=== PATIENT | male | born 1940 | race Caucasian/White ===

== ENCOUNTER 2016-04-20 05:21 | Day surgery (SDC) | payer MEDICARE, BC ==
[2016-04-19 09:25] LABS: BASOPHILS 0.2 % (0.0-2.0); EOSINOPHILS 7.5 % (0-7); IMMATURE GRANULOCYTES 0.2 % (0-5); LYMPHOCYTES 21.9 % (15-50); MCH 31.2 pg (26.0-34.0); MCHC 32.3 g/dL (31.0-37.0); MCV 96.6 fL (80.0-100.0); MEAN PLATELET VOLUME 10.8 fL (7.4-10.4); MONOCYTES 6.8 % (2-11); NEUTROPHILS 63.4 % (40-80); PLATELET COUNT 139 10x3/uL (130-400); RBC 3.21 10x6/uL (4.20-6.10); RDW 14.1 % (11.5-14.5); WBC 8.1 10x3/uL (4.8-10.8)
[2016-04-19 09:43] LABS: ANION GAP 14.5 mmol/L (8-16); CALCIUM 10.6 mg/dL (8.5-10.1); CARBON DIOXIDE 26.8 mmol/L (21.0-32.0); CREATININE - SERUM 4.2 mg/dL (0.6-1.3); POTASSIUM - SERUM 4.3 mmol/L (3.5-5.1)
[2016-04-19 09:49] LABS: APTT 31.1 SECONDS (22.8-39.4); INR 1.05 (0.85-1.17); PROTIME 13.5 SECONDS (11.6-15.0)
[~2016-04-20] VITALS: Ht 175.3 cm; Wt 72.6 kg
[~2016-04-20 05:21] MED LIST: ALTACE5 MG PO; ASPIRIN EC325 M1 PO; CATAPRES0.1 MG PO; FISH OIL 1,2001 CAP PO; FLOMAX0.4 MG PO; IRON PO; METOPROLOL TART50 MG PO; NORVASC5 MG PO; PRESERVISION AR1 CAP PO; ROCALTROL0.25 MCG PO; ZOCOR20 MG PO; ZYLOPRIM100 MG PO
[2016-04-20] MEDS ORDERED: PROTONIX40 MG PO (06:31)
[2016-04-20 06:34] VITALS: Ht 175.3 cm; Wt 72.6 kg
--- NOTE | 2016-04-20 11:30 | NUR ---
1110 DR. LINDA HATCH
--- NOTE | 2016-04-30 13:07 | OP ---
PATIENT NAME: VENKATESH JEROME MEDICAL RECORD: [id number] :39 [facility] ADMISSION DATE: SURGEON: SHANA MCKEON MD DATE OF OPERATION: 04/20/2016 REFERRED BY: Dr. Gatrh Scales PREOPERATIVE DIAGNOSIS: Chronic kidney disease V. POSTOPERATIVE DIAGNOSIS: Chronic kidney disease V. OPERATION PERFORMED: Creation of a left brachiocephalic arteriovenous fistula. SURGEON: Shana Mckeon MD ANESTHESIA: General via LMA per LINKING MACHINE OPERATOR. PREOPERATIVE NOTE: Mr. Jerome is a 75-year-old white male from [place] referred by Dr. Scales for dialysis access. He has chronic kidney disease and is anticipated to require dialysis within the year, perhaps. The patient is very interested in doing peritoneal dialysis, but is apparently not considered close enough to require dialysis for the PD catheter to be implanted today. He is brought to the OR with plans to create a fistula in the left arm. DESCRIPTION OF THE PROCEDURE: Under general anesthesia in supine position, the patient was prepped and draped in sterile manner and a proximal venous tourniquet was utilized in the arm treated with topical nitroglycerin. The cephalic vein at the wrist appeared likely to be acceptable. I made a longitudinal incision and exposed it directly, but found that it had a very prominent valve and several inoperative branches and it was on its own of 2 small caliber, so I that abandoned that site and went on to make a transverse antecubital incision. After ultrasound, had demonstrated a very nice cephalic vein from the antecubital space upwards. The median cubital vein trunk to the cephalic vein was dissected down to the confluence of it with the medial branch, which drained into the basilic vein. I was able during all this dissection to preserve the median antebrachial vein and the median cubital vein to the basilic, so that in the future, the patient still might possibly have a proximal radial artery based AV fistula or a basilic vein fistula with maximal length of vein preserved at this point. The median cubital vein, which I did use was fully mobilized and ligated with 3-0 Vicryl at its confluence with the median antebrachial vein. The vein was beveled and then flushed with heparinized saline and controlled with ____ traumatic clamp. The brachial artery was exposed and controlled with Silastic loops. It was opened and flushed proximally and distally with heparinized saline and then end-to-side anastomosis and performed veined, the artery with running 7-0 Prolene. When the anastomosis was completed and the occluding clamps and loops were released, excellent flow was established in the fistula and the patient had preservation of flow in the distal brachial artery and in the radial and ulnar arteries at the wrist in the palmar arch as demonstrated with a Doppler. The wounds, both were irrigated with Ancef and gentamicin solution. Hemostasis in both was adequate; the wounds were infiltrated and irrigated with one 0.25% Marcaine with epinephrine. The wounds were closed with interrupted inverted 3-0 Vicryl and running intracuticular 4-0 Monocryl and Dermabond glue. They were dressed with Maxorb Ag, Tegaderm and Cavilon skin prep. The patient was OPERATIVE REPORT [id number] VENKATESH JEROME awakened and taken to the recovery room in stable condition. Blood loss throughout was trivial and unreplaced and all sponges, instruments, and needles were accounted for. No drain was used and no surgical specimen was submitted for histopathology. PLAN: The patient will be discharged to home today and will take Tylenol as needed for pain. He will continue with same usual medications and renal diet. I will have him follow up with me in my office next week and I will plan to remove the original operative dressings there at that time. The patient can be scheduled for peritoneal dialysis catheter, whenever Dr. Scales thinks that appropriate. I would for now, expect the new fistula to mature in 6-8 weeks. TRANSINT:[id number] Voice Confirmation ID: [id number] DOCUMENT ID: [id number] SHANA MCKEON MD at 1307 CC: GARTH SCALES MD [id number] DICTATION DATE: 04/20/16 1134 MARBLE COPER: 04/20/16 1227 [facility] 04/20/16 [id number] [place] [address]
== END 2016-04-20 15:25 | disposition home or self-care (01) ==
LOC: D.OPS 05:21 → D.PAN 08:00 → D.OPS 08:00
PROVIDERS: Surgery
DX: N18.5 Chronic kidney disease, stage 5 (principal)

== ENCOUNTER 2016-04-23 20:35 | Emergency (ER) | payer MEDICARE, BC ==
[2016-04-20 06:34] VITALS: BMI 23.6
[~2016-04-23 20:35] MED LIST changes: +PROTONIX40 MG PO
[2016-04-23 21:35] LABS: BASOPHILS 0.2 % (0.0-2.0); EOSINOPHILS 0.3 % (0-7); HEMATOCRIT 28.4 % (42.0-54.0); HEMOGLOBIN 9.1 g/dL (13.5-17.5); IMMATURE GRANULOCYTES 0.3 % (0-5); LYMPHOCYTES 4.3 % (15-50); MCH 30.6 pg (26.0-34.0); MCV 95.6 fL (80.0-100.0); MEAN PLATELET VOLUME 11.5 fL (7.4-10.4); MONOCYTES 8.1 % (2-11); NEUTROPHILS 86.8 % (40-80); PLATELET COUNT 149 10x3/uL (130-400); RBC 2.97 10x6/uL (4.20-6.10); RDW 14.2 % (11.5-14.5); WBC 13.8 10x3/uL (4.8-10.8)
[2016-04-23 21:55] LABS: ALBUMIN 3.1 g/dL (3.4-5.0); ANION GAP 19.3 mmol/L (8-16); BILIRUBIN - TOTAL 0.62 mg/dL (0.2-1.3); CALCIUM 8.7 mg/dL (8.5-10.1); CARBON DIOXIDE 20.2 mmol/L (21.0-32.0); CREATININE - SERUM 4.9 mg/dL (0.6-1.3); POTASSIUM - SERUM 4.5 mmol/L (3.5-5.1); PROTEIN - SERUM 6.4 g/dL (6.4-8.2)
[2016-04-23 22:19] LABS: TROPONIN-I 0.268 ng/mL (0.000-0.060)
== END 2016-04-24 01:00 | disposition home or self-care (01) ==
LOC: D.ER 20:35
PROVIDERS: Emergency Medicine
DX: R06.00 Dyspnea, unspecified (principal); I50.9 Heart failure, unspecified; E87.70 Fluid overload, unspecified; J98.8 Other specified respiratory disorders; D64.9 Anemia, unspecified

== ENCOUNTER 2016-05-08 13:13 | Emergency (ER) | payer MEDICARE, BC ==
[2016-04-20 06:34] VITALS: BMI 23.6
[2016-05-08 14:00] LABS: BASOPHILS 0.2 % (0.0-2.0); HEMATOCRIT 29.2 % (42.0-54.0); HEMOGLOBIN 9.2 g/dL (13.5-17.5); IMMATURE GRANULOCYTES 0.2 % (0-5); LYMPHOCYTES 18.6 % (15-50); MCH 31.4 pg (26.0-34.0); MCHC 31.5 g/dL (31.0-37.0); MCV 99.7 fL (80.0-100.0); MEAN PLATELET VOLUME 10.8 fL (7.4-10.4); MONOCYTES 5.9 % (2-11); NEUTROPHILS 73.1 % (40-80); RBC 2.93 10x6/uL (4.20-6.10); RDW 14.1 % (11.5-14.5); WBC 9.3 10x3/uL (4.8-10.8)
[2016-05-08 14:07] LABS: PLATELET COUNT 256 10x3/uL (130-400)
[2016-05-08 14:17] LABS: ALBUMIN 3.1 g/dL (3.4-5.0); ANION GAP 19.5 mmol/L (8-16); BILIRUBIN - TOTAL 0.4 mg/dL (0.2-1.3); CALCIUM 8.7 mg/dL (8.5-10.1); CARBON DIOXIDE 25.3 mmol/L (21.0-32.0); CREATININE - SERUM 4.9 mg/dL (0.6-1.3); POTASSIUM - SERUM 3.8 mmol/L (3.5-5.1); PROTEIN - SERUM 7.3 g/dL (6.4-8.2)
[2016-05-08 14:33] LABS: TROPONIN-I 0.06 ng/mL (0.000-0.060)
== END 2016-05-08 15:40 | disposition home or self-care (01) ==
LOC: D.ER 13:13
PROVIDERS: Emergency Medicine
DX: R09.89 Other specified symptoms and signs involving the circulatory and respiratory systems (principal); N18.9 Chronic kidney disease, unspecified; E87.0 Hyperosmolality and hypernatremia; D63.8 Anemia in other chronic diseases classified elsewhere; I50.9 Heart failure, unspecified; I12.9 Hypertensive chronic kidney disease with stage 1 through stage 4 chronic kidney disease, or unspecified chronic kidney disease; N40.0 Benign prostatic hyperplasia without lower urinary tract symptoms; I49.3 Ventricular premature depolarization

== ENCOUNTER 2016-05-10 10:11 | Emergency (ER) | payer MEDICARE, BC ==
[2016-04-20 06:34] VITALS: BMI 23.6
[2016-05-10 11:21] LABS: ALBUMIN 3.1 g/dL (3.4-5.0); ANION GAP 16.8 mmol/L (8-16); BILIRUBIN - TOTAL 0.41 mg/dL (0.2-1.3); CALCIUM 8.9 mg/dL (8.5-10.1); CREATININE - SERUM 4.5 mg/dL (0.6-1.3); POTASSIUM - SERUM 3.8 mmol/L (3.5-5.1); PROTEIN - SERUM 7.3 g/dL (6.4-8.2)
[2016-05-10 11:40] LABS: BASOPHILS 0.2 % (0.0-2.0); EOSINOPHILS 0 % (0-7); HEMATOCRIT 28.2 % (42.0-54.0); HEMOGLOBIN 8.7 g/dL (13.5-17.5); IMMATURE GRANULOCYTES 0.2 % (0-5); LYMPHOCYTES 10.5 % (15-50); MCH 30.4 pg (26.0-34.0); MCHC 30.9 g/dL (31.0-37.0); MCV 98.6 fL (80.0-100.0); MEAN PLATELET VOLUME 11.9 fL (7.4-10.4); NEUTROPHILS 83.1 % (40-80); PLATELET COUNT 279 10x3/uL (130-400); RBC 2.86 10x6/uL (4.20-6.10); RDW 14.1 % (11.5-14.5); WBC 8.9 10x3/uL (4.8-10.8)
== END 2016-05-10 14:49 | disposition home or self-care (01) ==
LOC: D.ER 10:11
PROVIDERS: Emergency Medicine
DX: I50.9 Heart failure, unspecified (principal); N18.9 Chronic kidney disease, unspecified; D63.8 Anemia in other chronic diseases classified elsewhere; N40.0 Benign prostatic hyperplasia without lower urinary tract symptoms; I12.9 Hypertensive chronic kidney disease with stage 1 through stage 4 chronic kidney disease, or unspecified chronic kidney disease

== ENCOUNTER 2019-01-05 06:54 | Day surgery (SDC) | payer MEDICARE, BC ==
[~2019-01-05] VITALS: Ht 175.3 cm; Wt 63.5 kg
[2019-01-05 07:31] LABS: BASOPHILS 0.4 % (0-2); EOSINOPHILS 5.2 % (0-7); HEMATOCRIT 33.3 % (42.0-54.0); HEMOGLOBIN 9.8 g/dL (13.5-17.5); IMMATURE GRANULOCYTES 0.1 % (0-5); LYMPHOCYTES 22.4 % (15-50); MCH 30.8 pg (26.0-34.0); MCHC 29.4 g/dL (31.0-37.0); MCV 104.7 fL (80.0-100.0); MEAN PLATELET VOLUME 10.3 fL (7.4-10.4); MONOCYTES 8.7 % (2-11); NEUTROPHILS 63.2 % (40-80); RBC 3.18 10x6/uL (4.20-6.10); RDW 15.5 % (11.5-14.5); WBC 7.6 10x3/uL (4.8-10.8)
[2019-01-05 07:33] LABS: PLATELET COUNT 218 10x3/uL (130-400)
[2019-01-05 07:43] LABS: INR 1.07 (0.85-1.17); PROTIME 13.4 SECONDS (11.6-15.0)
[2019-01-05 07:49] LABS: ANION GAP 14.4 mmol/L (8-16); CALCIUM 8.5 mg/dL (8.5-10.1); CARBON DIOXIDE 29.2 mmol/L (21.0-32.0); CREATININE - SERUM 5.6 mg/dL (0.6-1.3); POTASSIUM - SERUM 4.6 mmol/L (3.5-5.1)
[2019-01-05] MEDS ORDERED: ISOSORBIDE DINI30 MG (09:12)
[2019-01-05] MEDS ORDERED: BRILINTA90 MG PO (09:12)
[2019-01-05] MEDS ORDERED: LASIX40 MG (09:13)
[2019-01-05 09:26] VITALS: Ht 175.3 cm; Wt 63.5 kg
[2019-01-05] MEDS ORDERED: ULTRAM50 MG PO (13:38)
--- NOTE | 2019-01-08 15:54 | OP ---
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 OPERATION PERFORMED: Ultrasound-guided access of left arm AV fistula with fistulogram followed to the right atrium, demonstrating approximately a 50% to 60% recurrent stenosis in the cephalic arch and an aneurysmal body of the fistula. Balloon angioplasty of the stenosis within the cephalic arch followed by drug-coated balloon treatment with a 12 mm diameter x 40 mm long Lutonix balloon and then open resection of the antecubital aneurysmal segment of the fistula replacing it with an Artegraft which was then banded to precisely 4 mm with a Adhikari banding technique using a 4-mm diameter angioplasty balloon and then retrograde fistulogram obtained by injecting contrast with the outflow occluded. This demonstrated good flow through the fistula and arterial anastomosis with a patent iatrogenic stenosis at the banding site and no lesions of the brachial artery. Ultrasound images were saved on hard copy and archived on paper and the patient's chart permanent medical record. 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 Scales. He was referred to me for possible banding or flow restriction of the fistula in hopes of reducing the mauricio stresses and frequency of recurrent stenoses in the cephalic arch. He is brought to the operating room at this time today with plans to do a fistulogram and possible angioplasty with possible Lutonix drug-coated balloon therapy of the cephalic arch and an open Adhikari banding of the fistula with possible aneurysm resection. SURGEON: Shana Mckeon MD ANESTHESIA: General per VASCULAR RADIOLOGIST. DESCRIPTION OF PROCEDURE: With the patient under anesthesia in supine position, he was prepped and draped in a sterile manner with the left arm abducted. The fistula was accessed in its midportion with ultrasound guidance. The ultrasound demonstrated the mid humeral fistula to be fully compressible without any thrombus or other intraluminal defects and very shallow or superficial in good position for dialysis access. A fistulogram was performed then through the micropuncture 5-Bolivian catheter and this demonstrated no lesions of the proximal fistula in the venous runoff all the way to the right atrium with the exception of a recurrent 50% to 60% stenosis of the cephalic arch. I then placed an 8-Bolivian introducer in the distal arm directed proximally and through that introducer dilated the stenotic cephalic arch with a 10 mm x 40 millimeter angioplasty balloon. I obtained full effacement and repeat angiography revealed OPERATIVE REPORT [id number] VENKATESH JEROME less than 10% residual stenosis. I then treated this area with a single inflation of 12 mm x 40 mm Lutonix drug-coated balloon, which was inflated, achieved full effacement and was held inflated for 2 minutes. It was deflated and removed and repeat contrast injection revealed a nice result with minimal persistent stenosis in the cephalic arch. I then made a S shaped incision along the fistula across the antecubital space and exposed the aneurysmal segment and dissected the aneurysm to the anastomosis with the proximal radial artery and the vessel was dissected and controlled proximally and distally with doubly looped Silastic tapes. Proximally, the fistula was encircled with a Silastic loop. The patient was systemically heparinized and then with 5000 units of heparin and the aneurysm was subsequently resected. I replaced the aneurysmal segment with an Artegraft approximately 8 cm in length and this was sutured end-to-end with a running 6-0 Prolene both proximally and distally. The suture lines were sealed with BioGlue and flow was restored. The proximal suture line required an additional suture for hemostasis and I used fibrillar on both of the anastomoses for complete hemostasis while the patient's heparin was reversed with a total of 15 mg of protamine. I then inflated a 4 mm diameter angioplasty balloon to its maximum inflation pressure and placed alongside the Artegraft near the distal or arterial anastomosis and then placed a single 2-0 Prolene ligature around the Artegraft and the inflated 4 mm balloon thereby reducing the internal luminal diameter at that point to 4 mm. The hardware was removed and the fistula functioned well. The fistula was much less hyperpulsatile than it had been preop. The wound was irrigated with saline and then closed without the use of a drain approximating subcutaneous tissues with interrupted inverted 3-0 Vicryl and skin with running intracuticular 4-0 Stratafix. Incision was sealed with glue and dressed with Maxorb Ag, Tegaderm, and Cavilon skin prep. A 4-0 Prolene [id number] suture was used to help obtain hemostasis at the 8-Bolivian introducer site. Both that side and the micropuncture site proximally were dressed with Maxorb Ag and Tegaderm. At that point, the patient was awakened from anesthetic and taken to the recovery room. Blood loss during the operation was perhaps 20 cc and was unreplaced and all sponges, instruments, and needles were accounted for. No drain was used. The surgical specimen consisted of the resected aneurysmal cephalic vein/AV fistula. PLAN: The patient will hopefully go home this afternoon and I will plan to see him back in my office in 2 weeks. He will resume his usual diet and activities and dialysis schedule tomorrow, and tomorrow, he will resume his Brilinta antiplatelet therapy, which had been discontinued for a few days, preop. I will recommend also to [facility] and his dialysis unit that he has a followup fistulogram performed at [facility] in 3 months. TRANSINT:[id number] Voice Confirmation ID: [id number] DOCUMENT ID: [id number] SHANA MCKEON MD at 1554 CC: MYRNA SCALES MD [id number] DICTATION DATE: 01/05/19 1401 HEALTH SAFETY AND ENVIRONMENT MANAGER: 01/05/192149 [facility] 01/05/19 [facility] [address] [place] [address]
== END 2019-01-05 15:17 | disposition home or self-care (01) ==
LOC: D.OPS 06:54
PROVIDERS: Surgery; ATTEND Internal Medicine
DX: T82.898A Other specified complication of vascular prosthetic devices, implants and grafts, initial encounter (principal); Y83.9 Surgical procedure, unspecified as the cause of abnormal reaction of the patient, or of later complication, without mention of misadventure at the time of the procedure; N18.6 End stage renal disease; Z99.2 Dependence on renal dialysis